=== PATIENT | female | born 1965 | race Caucasian/White ===

== ENCOUNTER 2025-08-13 11:04 | Outpatient (AMB) | payer MEDICARE, MEDICAID, SELFPAY ==
--- NOTE | 2025-08-13 11:09 | A.OFFVIS_ITS ---
Intake Visit Reasons: 4 Month follow up Allergies No Known Allergies Allergy (Verified 08/13/25 11:12) Medication List - Last Reconciled 08/13/25 by Lulú Chavez CNP cariprazine (Vraylar) 1.5 mg PO DAILY fluoxetine 40 mg PO DAILY methadone 10 mg PO TID 30 days paroxetine HCl 40 mg PO DAILY pramipexole 0.5 mg PO DAILY HPI Comments Details: She has been working with psychiatrist, started on Vraylar a few days ago. She reports continuous pain throughout her body, feels pain may be getting worse and every cell is throbbing. Referral to pain management was placed at last appointment, but she did not hear back with appointment. The only medication that helps is methadone, but she does not feel 30mg/day is sufficient anymore and she has been told multiple times that dose would not be increased. She was doing and teaching yoga, which gave some temporary relief but was sore after. RLS symptoms controlled with pramipexole. She had to take handfuls of Tylenol and ibuprofen and wanted to know what could be done about pain. She tried meloxicam, but medication made her feel bloated. She did not want medication that could cause weight gain. She tried turmeric, curcumin, fish oil, pain patches, and was drinking alkaline water. She was doing and teaching yoga. Diclofenac helped, but made her feel bloated and stopped it. Ketorolac helped in the past, but was not able to get from pharmacy. Constant, generalized pain all over, everywhere in body, even in bone marrow. Feels she has gotten used to methadone 30mg/day. She has a history of depression, anxiety, fibromyalgia, alcohol abuse in the past who has not used since 1999. Still depressed. She has previously been treated with Effexor which caused suicidal tendencies, Savella, Cymbalta, Lyrica, tramadol, gabapentin, and other medications. Pain increases with cold weather. She is currently on methadone 10 mg three times a day, which has been working for her, but she is interested in increasing the dose, but Dr. Blue has declined to do that. She has a narcotic contract with this office that if she gets narcotics from any other physician. We will stop the methadone and stop treating her in this office. She's been functioning reasonably well and pain is moderately controlled. Last seizure was >15 years ago. Partial sz with secondary generalization. Review of Systems Const Denies chills, Denies daytime sleepiness, Denies difficulty sleeping, Denies fatigue, Denies fever(s), Denies frequent falls, Denies headache(s), Denies increased appetite, Denies poor appetite, Denies snoring, Denies weakness, Denies weight gain and Denies weight loss Eyes Denies loss of vision ENT Denies vertigo, Denies dizziness, Denies headache(s) and Reports neck pain Card Denies chest pain at rest, Denies chest pain with activity, Denies syncope, Denies leg edema, Denies palpitations, Denies dyspnea and Denies dyspnea on exertion Resp Denies cough, Denies dyspnea, Denies dyspnea on exertion and Denies snoring GI Denies abdominal pain, Denies constipation, Denies heartburn, Denies diarrhea and Denies nausea Denies urinary frequency, Denies urinary incontinence and Denies urinary urgency Musc Denies abnormal gait, Reports back pain, Reports myalgias, Reports arthralgias, Reports neck pain, Denies numbness and Denies tingling Neuro Denies abnormal gait, Denies vertigo, Denies dizziness, Denies syncope, Denies frequent falls, Denies headache(s), Denies lack of coordination, Denies loss of vision, Denies memory loss, Denies numbness, Denies Other visual disturbances, Denies restless legs, Denies seizure-like activity, Denies tingling, Denies paresthesias, Denies tremor(s) and Denies weakness Psych Reports anxiety, Reports depression, Denies auditory hallucinations, Denies memory loss and Denies visual hallucinations Endo Denies fatigue and Denies palpitations Physical Exam Const Other: General Appearance:? normal, in no acute distress. Heart:? S1, S2 normal, no murmurs. Lungs:? clear anteriorly and posteriorly. Musculoskeletal:? normal. Extremities:? no edema. Psych:? alert, oriented, cognitive function intact, cooperative with exam. Neuro Other: Abnormal Neurological Findings:?none.? Mental Status: alert and oriented X 3. Normal attention, orientation, memory, and affect. Cranial Nerves: Pupils are equal, round, and reactive to light. External ocular muscles are intact. Visual brown are full, no ptosis. Face is symmetrical, no facial weakness or droop. Facial sensations are normal. Tongue protrudes in midline. Palate elevates symmetrically. Shoulder shrugging is normal Motor Examination: Normal muscle tone, bulk and strength. No atrophy or fasciculations. No drift of the extended upper extremities. DTR 2+. Plantars are flexor. Sensory Exam: Normal light touch, temperature, pinprick, vibration, and joint- position sensations. Rhomberg sign is absent. Coordination: No ataxia. No titubation. Gait Exam: Within normal limits. Cerebellar Signs: Pjzyzn-[id number]-ozin is okay. Extrapyramidal System: No tremor, rigidity with normal facial expressions. No bradykinesia. No bradyphrenia. Normal arm swing and posture. No propulsion or retropulsion. Speech: Normal. Assessment & Plan Assessment & Plan (1) Restless leg syndrome: Code(s): G25.81 - Restless legs syndrome Category: Medical Plan: Continue pramipexole 0.5mg 1 tablet in the evening. (2) Chronic pain: Code(s): G89.29 - Other chronic pain Category: Medical Qualifiers: Chronic pain type: other chronic pain Qualified Code(s): G89.29 - Other chronic pain Plan: Continue methadone 10mg 1 tablet three times a day. She was referred to pain management at her last visit, but says she was not contacted to schedule appointment. Referral to pain management placed. (3) Fibromyalgia: Code(s): M79.7 - Fibromyalgia Category: Medical (4) Depression: Code(s): F32.A - Depression, unspecified Category: Medical Qualifiers: Depression Type: other depression Qualified Code(s): F32.89 - Other specified depressive episodes Plan: Following with psychiatrist. Plan . Orders: Referrals Pain Management Referral G89.29 - Other chronic pain Coding Level of Care Code Est Pt Level 4 (67441) Diagnoses Restless leg syndrome G25.81 Other chronic pain G89.29 Chronic pain type: other chronic pain Fibromyalgia M79.7 Other depression F32.89 Depression Type: other depression
--- OUTSIDE RECORDS SUMMARY | 2025-08-13 12:21 | XMS_ITS | Clinical Summary ---
Author Organization [facility] it Address [address] [place] [address] Care Team Providers Care Ring Stamper Name Role Phone Lety Piña MD Primary Care Provider [phone] Allergies No known active allergies Medications penicillin v potassium (VEETID) 500 mg tablet Take 500 mg by mouth 4 times daily. Active ibuprofen (ADVIL,MOTRIN) 600 mg tablet Take 600 mg by mouth every 8 hours as needed. Moderate to severe pain Active FLUoxetine (PROzac) 20 mg capsule Take 20 mg by mouth daily. Active LORazepam (ATIVAN) 1 mg tablet Take 1 mg by mouth 2 times daily as needed for Agitation or Anxiety. Active methadone HCl (METHADONE ORAL) Take 10 mg by mouth 3 times daily. Active PARoxetine (PAXIL) 40 mg tablet Take 40 mg by mouth daily. Active pramipexole (MIRAPEX) 0.5 mg tablet Take 0.5 mg by mouth 2 times daily. Active ziprasidone (GEODON) 40 mg capsule Take 40 mg by mouth daily. 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 Jiménez (biopsy performed 10/18 revealed LSC and yet distribution and number of lesions concurs with Dr. Jiménez dx) Depression 05/15/2006 Substance abuse ([facility] V24, [facility] V28) 05/15 Overview (08/19/2024): Smokes cocaine, Denies IVDU, H/o alcohol abuse reportedly quit 1999 Immunizations Immunization Administration Dates Next Due Influenza trivalent, 0.5mL, preservative free (Fluarix; FluLaval; Fluzone) ages 6mo and older (Afluria) 3 years and older 09/02/2014 Td Tetanus diptheria (Tdvax) 7yo and older 11/16 Surgical History Surgery Date Site/Laterality Comments TONSILLECTOMY PROCEDURE: HISTORICAL TONSILLECTOMY; COMMENT: age 8 OTHER SURGICAL HISTORY PROCEDURE: IN [place] MISSED FIRST TRIMESTER SURGICAL Medical History Medical History Date Comments Anxiety 05/07/2016 DX:Anxiety Osteoarthritis 12/17/2018 DX:Osteoarthriti s; COMMENT: Cervical Spine Spinal stenosis, cervical region 12/17/2018 DX:Spinal stenosis, cervical region Pulmonary emphysema ([facility] V24, 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 Jiménez (biopsy performed 10/18 revealed LSC and yet distribution and number of lesions concurs with Dr. Jiménez dx) Osteoporosis 06/13/2016 DX:Osteoporosis Restless legs syndrome 05/07/2016 DX:Restle ss legs syndrome Tubular adenoma of colon 10/31/2016 DX:Tubu lar adenoma of colon Depression 05/15/2006 DX:Depression Substance abuse ([facility] V24 , [facility] V28) 05/15/2006 DX:Substance abuse ([facility]); CO MMENT: Smokes cocaine, Denies IVDU, H/o alcohol abuse reportedly quit 1999 Mitral valve regurgitation 12/17/2018 DX:Mi tral valve regurgitation; COMMENT: 11/2018 Echo, Mild Family History Medical History Relation Name Comments Depression Maternal Grandmother Depression Mother Relation Name Status Comments Father Alive Maternal Grandfather Maternal Grandmother Mother Alive Paternal Grandfather Paternal Grandmother Social History Tobacco Use Types Packs/Day Years Used Date Smoking Tobacco: Passive Smo ke Exposure - Never Smoker Cigarettes Smokeless Tobacco: Former Alcohol Use Standard Drinks/Week Comments No 0 (1 standard drink = 0.6 oz pur e alcohol) Comments Unknown Sex and Gender Information Value Date Recorded Sex Assigned at Not on file Legal Sex Female 9:05 PM EST Gender Identity Not on file Sexual Orientation Not on file Obstetrics History Plan of Treatment Health Maintenance Due Date Last Done Comments Breast Cancer Screening 1963 Colorectal Cancer Screening: Colonoscopy 1965 Hepatitis A Vaccines (1 of 2 - Risk 2-dose series) 1982 Pneumococcal Vaccine: 50+ Ye ars (1 of 2 - PCV) 1982 Cervical Cancer Screening: P ap Smear 01/08/2011 01/08/2008 Zoster Vaccines (1 of 2) 2013 DTaP,Tdap,and Td Vaccines (2 - Td or Tdap) 11/16/2014 11/16/2004 RSV Immunization Adult Patie nts (1 - Risk 60-74 years 1-dose series) 2023 Osteoporosis Screening (Bone Density Screening) 08/19/2024 Social Influencers of Health Screening 08/19/2024 Depression Screening 11/11/2024 COVID-19 Vaccine ( - 2023-2 5 season) 2025 Influenza Vaccine (#1) 2025 09/02/2014 HIV Screening Completed 01/08/2008 Hepatitis C Screening Completed 01/08/2008 HIB Vaccines Aged Out No longer eligi ble based on patient's age to complete this topic HPV Vaccines Aged Out No longer eligi ble based on patient's age to complete this topic Hepatitis B Vaccines Aged Out No long er eligible based on patient's age to complete this topic IPV Vaccines Aged Out No longer eligi ble based on patient's age to complete this topic MMR Vaccines Aged Out No longer eligi ble based on patient's age to complete this topic Meningococcal ACWY Vaccine Aged Out N o longer eligible based on patient's age to complete this topic Meningococcal B Vaccine Aged Out No l onger eligible based on patient's age to complete this topic RSV Immunization Patients Un [place] 20 months Aged Out No longer eligible b ased on patient's age to complete this topic Varicella Vaccines Aged Out No longer eligible based on patient's age to complete this topic Procedures Procedure Name Priority Date/Time Associated Diagnosis Comments HEPATITIS C SCREENING Routine 01/08/2008 HIV SCREENING Routine 01/08/2008 PAP SMEAR Routine 01/08/2008 from Last 3 Months or Most Recently Relevant to Health Maintenance Results * HIV Screening (01/08/2008) Pathologist [facility] HIV Screening abstarcted [facility] Provider HEALTH MAINTENANCE Final Result * Hepatitis C Screening (01/08/2008) Pathologist [facility] Hepatitis C Screening abstarcted [facility] Provider HEALTH MAINTENANCE Final Result * Pap Smear (01/08/2008) Pathologist [facility] Pap smear abstracted, no interpretation [facility] Provider HEALTH MAINTENANCE Final Result from Last 3 Months or Most Recently Relevant to Health Maintenance Care Teams Ring Stamper Relationship Specialty Start Date End Date Lety Piña MD [address] [place] [id number] PCP - General Internal Medicine 12/25/18
== END 2025-08-13 11:26 | disposition home or self-care (01) ==
LOC: HO.HSM 11:05
PROVIDERS: PCP Internal Medicine; Visit Provider Registered Nurse
DX: G25.81 Restless legs syndrome (principal); G89.29 Other chronic pain; M79.7 Fibromyalgia; F32.89 Other specified depressive episodes
CPT/HCPCS: 99214

== ENCOUNTER → 2025-08-13 11:04 | Outpatient (BNVA) | payer MEDICARE, OTHER, SELFPAY | PROVIDERS: PCP Internal Medicine; Visit Provider Registered Nurse | DX: G25.81 Restless legs syndrome (principal); F32.89 Other specified depressive episodes; M79.7 Fibromyalgia; G89.29 Other chronic pain | CPT/HCPCS: 99212 ==

== ENCOUNTER 2025-09-13 12:59 | Outpatient (AMB) | payer MEDICARE, MEDICAID, SELFPAY ==
--- NOTE | 2025-09-13 13:01 | MHC.OFFVIS ---
Vital Signs 09/13/25 13:09 Height 5 ft 6 in Weight 110 lb BMI 17.8 BP 140/82 H Blood Pressure Location Rt brachial Position Sitting Pulse 96 Pulse Source Pulse Oximeter Pulse Oximetry (%) 104 H Oxygen Delivery Method Room Air Intake Visit Reasons: Other chronic pain Intake Note: Pain today 05/20 Toll Line Mechanic Required: No Accompanied by: Self / Same As Patient Allergies No Known Allergies Allergy (Verified 09/13/25 13:13) HPI Comments Details: The patient is a 60-year-old female presenting with chronic pain affecting the neck, shoulders, back, and hips. The pain has been present for many years and is described as constant, pulsing, throbbing, and pounding, with a severity ranging from 6/10 to 8/10. It affects her daily activities, including self-care, functioning, and sleep, and is more severe in the morning and evening. The patient reports that movements such as walking, bending, twisting, and lifting, as well as cold weather, exacerbate her pain. She has been on methadone 10 mg three times a day for pain management for the past 10 years. She has tried various interventions, including physical therapy, chiropractic manipulation, and massage therapy, without relief. The patient has a history of fibromyalgia, neuropathy, scoliosis and chronic depression, which have contributed to her chronic pain. She also has a history of seizures, which occurred 20 years ago and are possibly related to past alcohol use. She stopped consuming alcohol in 1999 and has been in recovery since then. The patient has scoliosis, which has been present since childhood, affecting her thoracic and lumbar spine. She reports that the scoliosis causes a constant pulling sensation, contributing to her pain. She has not had any spine surgeries or injections for her back pain. - Onset and Timing: Chronic pain present for many years, more severe in the morning and evening - Quality and Character: Described as pulsing, throbbing, pounding, sore, hurting, aching, burning, pulling and heavy - Primary Location: Neck, shoulders, back, and hips - Radiation: Radiates to lower extremities - Exacerbating Factors: Movements such as walking, bending, twisting, lifting, and cold weather - Relieving Factors: Methadone and Yoga provides some relief - Interference: Affects daily activities, self-care, functioning, and sleep - Affect: Pain impacts mood and psychological wellbeing, contributing to chronic depression - Analgesia: Currently on methadone 10 mg three times a day, interested in increasing the dose - Adverse Effects: No specific adverse effects from methadone reported - Activities of Daily Living: Pain affects daily activities, self-care, functioning, and sleep - Aberrant Drug Related Behaviors: No aberrant behaviors reported, patient adheres to methadone regimen [facility] Medical History (Updated 09/13/25 @ 22:44 by RC Hurd) Scoliosis of thoracolumbar spine Seizures Ovarian cyst Chronic headaches Chronic pain Restless leg syndrome Fibromyalgia Depression Methadone maintenance therapy patient History of alcohol abuse Surgical History (Updated 09/13/25 @ 13:16 by RC Hurd) History of shoulder surgery (~1984) Social History (Updated 09/13/25 @ 13:19 by Day Bullock) Alcohol intake: former Year quit: 1999 Patient Tobacco Use Status: Former Tobacco user Review of Systems Const Details: - Musculoskeletal: Reports chronic pain in neck, shoulders, back, and hips; denies numbness or tingling in lower extremities - Neurological: Reports history of seizures, last occurred 20 years ago; denies current seizure activity - Psychological: Reports chronic depression All systems reviewed & are unremarkable except as noted in HPI and below Physical Exam Vital Signs: Last Vital Signs Pulse 96 09/13/25 13:09 BP 140/82 H 09/13/25 13:09 Pulse Ox 104 H 09/13/25 13:09 Oxygen Delivery Method Room Air 09/13/25 13:09 BMI result Body Mass Index 17.8 General: Appears afebrile. Alert and oriented. Mood and affect appropriate. Follows and participates in conversation appropriately. Respiratory effort is unlabored. No cough. Able to transition from sit to stand unassisted. Ambulates with bilaterally normal heel strike and toe off. General: Yes no CVA tenderness Back/Spine/Pelvis Other: Patient is able to walk and stand on heels and tip toes with no difficulties demonstrating good motor tone. Normal gait, no limping. Lumbar flexion and bending reproduces mild to moderate pain, lumbar extension reproduces moderate to severe pain. Demonstrates 5/5 strength of quadriceps bilaterally as well as flexion/dorsiflexion of bilateral feet against resistance. 2+ pedal pulses bilaterally. Straight leg rise with dorsiflexion negative bilaterally. +2 patellar and +1 achilles reflexes bilaterally. Facet loading test positive bilaterally. Fazal sign, Duncan?s, Pelvic compression and Stinchfield tests are negative bilaterally. No groin pain with I/E hip rotations. Valsalva maneuver negative. Back: no CVA tenderness Cervical Spine: cervical ROM normal, cervical muscular tenderness, pain with cervical ROM and No Cervical spine tenderness Thoracic/Lumbar Spine: thoracic and lumbar spine normal to inspection, Lasegue's sign negative, straight leg raise negative bilaterally, pain with thoraco-lumbar ROM, paraspinal muscle tenderness on the right greater than left, thoraco-lumbar ROM limited, Thoracic/lumbar scoliosis, No thoracic spinal tenderness and No lumbar spinal tenderness Sacroiliac joints: bilaterally nontender and tender to palpation Extrem General: Yes capillary refill normal, Yes no clubbing, cyanosis or edema and Yes no calf tenderness Results Reviewed Results Reviewed: XR lumbar spine 4V min 09/13/25 FINDINGS: There are 5 nonrib-bearing lumbar segments. There is 27 degrees dextroscoliosis. There is moderate rotational component. There is mild wedging of superior L1 and mild osteophyte at superior L2. T12-L1: There is moderate disc space narrowing and endplate sclerosis L1-L2: There is moderate disc space narrowing with endplate sclerosis and anterior osteophytes L2-L3: There is mild grade 1 retrolisthesis and moderate loss of disc height with minimal endplate osteophytes. L3-L4: There is mild disc space narrowing. L4-L5: Unremarkable L5-S1: Unremarkable IMPRESSION: Moderate dextroscoliosis. Moderate degenerative disc disease at T12-L1 and L1-2 and mild degenerative changes at L2-3 and L3-4. Mild loss of height at L1 and L2 is probably related to scoliosis and degenerative changes but mild age-indeterminate compression fractures are not ruled out. XR CERVICAL SPINE 09/13/25 FINDINGS: There is mild reversal of the normal cervical lordosis. No fractures are identified. Limbus vertebra is noted at anterior inferior C5 and C6. There is no prevertebral soft tissue swelling. C2-3: Unremarkable C3-4: There is mild disc space narrowing and endplate osteophytes C4-5: There is moderate disc space narrowing with large anterior osteophytes and sclerosis. There is mild bony narrowing of the bilateral neural foramen C5-6: There is mild disc space narrowing with anterior osteophytes and endplate sclerosis. Uncovertebral osteophytes mildly narrow the right neural foramen C6-7: There is mild to moderate disc space narrowing and endplate sclerosis. C7-T1: Unremarkable. IMPRESSION: There is mild reversal of cervical lordosis. This can be related to degenerative changes, positioning, muscle spasm, or posterior soft tissue injury. Degenerative changes are most advanced at C4-5 and C5-6. Assessment & Plan Assessment & Plan (1) Fibromyalgia: Code(s): M79.7 - Fibromyalgia Category: Medical (2) Chronic pain: Code(s): G89.29 - Other chronic pain Category: Medical Qualifiers: Chronic pain type: other chronic pain Qualified Code(s): G89.29 - Other chronic pain (3) Methadone maintenance therapy patient: Code(s): F11.20 - Opioid dependence, uncomplicated Category: Medical (4) Chronic low back pain: Code(s): M54.50 - Low back pain, unspecified; G89.29 - Other chronic pain Category: Medical (5) Cervical spondylosis: Code(s): M47.812 - Spondylosis without myelopathy or radiculopathy, cervical region Category: Medical (6) Chronic low back pain: Code(s): M54.50 - Low back pain, unspecified; G89.29 - Other chronic pain Category: Medical (7) Scoliosis of thoracolumbar spine: Code(s): M41.9 - Scoliosis, unspecified Category: Medical (8) Lumbar spondylosis: Code(s): M47.816 - Spondylosis without myelopathy or radiculopathy, lumbar region Category: Medical Plan The plan for managing the patient's chronic pain includes obtaining neck and back x-rays to assess for arthritis and degree of scoliosis and consider diagnostic lumbar medial branch blocks for potential Sprint PNS trial vs RFA procedures for a longer term pain management. These imaging studies were completed after today's visit. Schedule diagnostic bilateral L1-L2-L3 medial branch blocks with local and fluoroscopy. Expectations, risks and benefits were reviewed. Patient is aware she will be contacted to schedule this procedure. v The patient will continue methadone therapy through her Neurology provider, she is aware our office does not offer opioid prescribing. Further interventions such as physical therapy or career coordinator are not planned at this time due to previous lack of efficacy. All questions and concerns have been answered and patient agreed with the treatment plan. Follow up after injections and sooner as needed. Patient was informed and verbally consented to the use of an ambient scribe for clinic note documentation during this visit. Orders: Orders XR lumbar spine 4V min Today G89.29 - Other chronic pain, M41.9 - Scoliosis, unspecified, M54.50 - Low back pain, unspecified XR cervical spine 4V Today M47.812 - Spondylosis without myelopathy or radiculopathy, cervical region Coding Level of Care Code New Pt Level 4 (37760) Diagnoses Fibromyalgia M79.7 Other chronic pain G89.29 Chronic pain type: other chronic pain Methadone maintenance therapy patient F11.20 Chronic low back pain M54.50; G89.29 Cervical spondylosis M47.812 Scoliosis of thoracolumbar spine M41.9 Lumbar spondylosis M47.816
[2025-09-13 13:09] VITALS: BP 140/82; PULSE 96; O2SAT 104; BMI 17.8
== END 2025-09-13 13:36 | disposition home or self-care (01) ==
LOC: HO.PMC 13:00
PROVIDERS: PCP Internal Medicine; Visit Provider Nurse Practitioner Family
DX: M79.7 Fibromyalgia (principal); G89.29 Other chronic pain; Z79.891 Long term (current) use of opiate analgesic; M54.50 Low back pain, unspecified; M47.812 Spondylosis without myelopathy or radiculopathy, cervical region; M41.9 Scoliosis, unspecified; M47.816 Spondylosis without myelopathy or radiculopathy, lumbar region
CPT/HCPCS: 99204

== ENCOUNTER 2025-09-13 12:59 | Outpatient (REF) | payer MEDICARE, SELFPAY ==
--- NOTE | ~2025-09-13 | XR_ITS ---
EXAMINATION: XR CERVICAL SPINE CLINICAL INFORMATION: M47.812 - Spondylosis without myelopathy or radiculopathy, cervical region COMPARISON: None available. TECHNIQUE: 5 views of the cervical spine were obtained. FINDINGS: There is mild reversal of the normal cervical lordosis. No fractures are identified. Limbus vertebra is noted at anterior inferior C5 and C6. There is no prevertebral soft tissue swelling. C2-3: Unremarkable C3-4: There is mild disc space narrowing and endplate osteophytes C4-5: There is moderate disc space narrowing with large anterior osteophytes and sclerosis. There is mild bony narrowing of the bilateral neural foramen C5-6: There is mild disc space narrowing with anterior osteophytes and endplate sclerosis. Uncovertebral osteophytes mildly narrow the right neural foramen C6-7: There is mild to moderate disc space narrowing and endplate sclerosis. C7-T1: Unremarkable. XR/XR cervical spine 4V IMPRESSION: There is mild reversal of cervical lordosis. This can be related to degenerative changes, positioning, muscle spasm, or posterior soft tissue injury. Degenerative changes are most advanced at C4-5 and C5-6. Electronically signed by: Elton Webb MD 09/13/2025 02:24 PM EST
--- NOTE | ~2025-09-13 | XR_ITS ---
Examination: CR Xr Lumbar Spine 4v Min TECHNIQUE: AP, lateral, lateral spot, bilateral oblique x-rays lumbar spine INDICATION: M54.50 - Low back pain, unspecified Prior: None FINDINGS: There are 5 nonrib-bearing lumbar segments. There is 27 degrees dextroscoliosis. There is moderate rotational component. There is mild wedging of superior L1 and mild osteophyte at superior L2. T12-L1: There is moderate disc space narrowing and endplate sclerosis L1-L2: There is moderate disc space narrowing with endplate sclerosis and anterior osteophytes L2-L3: There is mild grade 1 retrolisthesis and moderate loss of disc height with minimal endplate osteophytes. L3-L4: There is mild disc space narrowing. L4-L5: Unremarkable L5-S1: Unremarkable XR/XR lumbar spine 4V min IMPRESSION: Moderate dextroscoliosis. Moderate degenerative disc disease at T12-L1 and L1-2 and mild degenerative changes at L2-3 and L3-4. Mild loss of height at L1 and L2 is probably related to scoliosis and degenerative changes but mild age-indeterminate compression fractures are not ruled out. Electronically signed by: Elton Webb MD 09/13/2025 02:21 PM DEJA
== END 2025-09-13 13:00 | disposition home or self-care (01) ==
LOC: HO.XRAY 12:59
PROVIDERS: Visit Provider Nurse Practitioner Family
DX: M47.812 Spondylosis without myelopathy or radiculopathy, cervical region (principal); M47.816 Spondylosis without myelopathy or radiculopathy, lumbar region; M41.9 Scoliosis, unspecified; M79.7 Fibromyalgia; G89.29 Other chronic pain; F11.20 Opioid dependence, uncomplicated
CPT/HCPCS: 72050; 72110; 99202

== ENCOUNTER → 2025-09-13 13:49 | Outpatient (BNV) | payer MEDICARE, MEDICAID, SELFPAY | PROVIDERS: Visit Provider Radiology Diagnostic Radiology | DX: M47.812 Spondylosis without myelopathy or radiculopathy, cervical region (principal); M51.34 Other intervertebral disc degeneration, thoracic region; M51.360 Other intervertebral disc degeneration, lumbar region with discogenic back pain only; M41.86 Other forms of scoliosis, lumbar region; M51.35 Other intervertebral disc degeneration, thoracolumbar region; M50.321 Other cervical disc degeneration at C4-C5 level; M50.322 Other cervical disc degeneration at C5-C6 level; M40.55 Lordosis, unspecified, thoracolumbar region | CPT/HCPCS: 72050; 72110 ==

== ENCOUNTER 2025-11-02 06:24 | Outpatient (REF) | payer MEDICARE, MEDICAID, SELFPAY ==
--- NOTE | ~2025-11-02 | FL_ITS ---
EXAMINATION: FL GUIDANCE ONLY HISTORY: M47.816 - Spondylosis without myelopathy or radiculopathy, lumbar region COMPARISON: None available. TECHNIQUE: Fluoroscopy time: 39 seconds. Cumulative Dose: 6.90 mGy. DAP: 1480.20 mGycm2 Images: 4. FINDINGS: Fluoroscopic spot films of the thoracolumbar junction demonstrate needles and contrast material lateral to the bilateral T12, L1, and L2 pedicles. FL/FL guidance in treatment room IMPRESSION: Fluoroscopy during procedure. Please see procedure report for additional information. Electronically signed by: Kishan Lomeli MD 11/02/2025 03:24 PM DEJA
--- OUTSIDE RECORDS SUMMARY | 2025-11-02 06:26 | XMS_ITS | Clinical Summary ---
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 Jiménez (biopsy performed 10/18 revealed LSC and yet distribution and number of lesions concurs with Dr. Jiménez dx) Depression 05/15/2006 Substance abuse 05/15/2006 Overview (08/19/2024): Smokes cocaine, Denies IVDU, H/o alcohol abuse reportedly quit 1999 Immunizations Immunization Administration Dates Next Due Influenza trivalent, 0.5mL, preservative free (Fluarix; FluLaval; Fluzone) ages 6mo and older (Afluria) 3 years and older 09/02/2014 Td Tetanus diptheria (Tdvax) 7yo and older 11/16 Surgical History Surgery Date Site/Laterality Comments TONSILLECTOMY PROCEDURE: HISTORICAL TONSILLECTOMY; COMMENT: age 8 OTHER SURGICAL HISTORY PROCEDURE: [place] MISSED FIRST TRIMESTER SURGICAL Medical History Medical History Date Comments Anxiety 05/07/2016 DX:Anxiety Osteoarthritis 12/17/2018 DX:Osteoarthriti s; COMMENT: Cervical Spine Spinal stenosis, cervical region 12/17/2018 DX:Spinal stenosis, cervical region Pulmonary emphysema (CMS/HCC V24, CMS/HCC V28) 12/17/2018 DX:Pulmonary emphysema (HCC) Cellulitis 12/17/2018 [...] of colon Depression 05/15/2006 DX:Depression Substance abuse (CMS/HCC V24 , CMS/HCC V28) 05/15/2006 DX:Substance abuse (HCC); CO MMENT: Smokes cocaine, Denies IVDU, H/o [...] on file Sexual Orientation Not on file Plan of Treatment Health Maintenance Due Date Last Done Comments Breast Cancer Screening 1963 Colorectal Cancer Screening: Colonoscopy 1965 Drug Screen 1963 Non-Opioid Controlled Substa nce Agreement 1963 Hepatitis A Vaccines (1 of 2 - Risk 2-dose series) 1982 Pneumococcal Vaccine: 50+ Ye ars (1 of 2 - PCV) 1982 Cervical Cancer Screening: P ap Smear 01/08/2011 01/08/2008 RSV Immunization Adult Patie nts (1 - Risk 50-74 years 1-dose series) 2013 Zoster Vaccines (1 of 2) 2013 DTaP,Tdap,and Td Vaccines (2 - Td or Tdap) 11/16/2014 11/16/2004 Osteoporosis Screening (Bone Density Screening) 08/19/2024 Social Influencers of Health Screening 08/19/2024 Depression Screening 11/11/2024 COVID-19 Vaccine (1 - 2024-2 6 season) 2025 Influenza Vaccine (#1) 2025 09/02/2014 [...] Maintenance Results * HIV Screening (01/08/2008) Pathologist [facility] HIV Screening abstarcted [facility] Provider HEALTH MAINTENANCE Final Result * Hepatitis C Screening (01/08/2008) Pathologist Replaced by [facility] Hepatitis C Screening abstarcted [facility] Provider HEALTH MAINTENANCE Final Result * Pap Smear (01/08/2008) Pap smear abstracted, no interpretation [facility] Provider HEALTH MAINTENANCE Final Result from Last 3 Months or Most Recently Relevant to Health Maintenance Care Teams Tiedown Operator Relationship Specialty Start Date End Date Lety Piña MD [address] [place] [address] PCP - General Internal Medicine 12/25/18
== END 2025-11-02 06:25 | disposition home or self-care (01) ==
LOC: CF 06:24
PROVIDERS: Visit Provider Anesthesiology
DX: M47.816 Spondylosis without myelopathy or radiculopathy, lumbar region (principal); M79.7 Fibromyalgia; G89.29 Other chronic pain; F11.20 Opioid dependence, uncomplicated; M47.812 Spondylosis without myelopathy or radiculopathy, cervical region; M41.9 Scoliosis, unspecified
CPT/HCPCS: 64493; 64494; J2003; J2795; Q9967

== ENCOUNTER 2025-11-02 12:58 | Outpatient (AMB) | payer MEDICARE, MEDICAID, SELFPAY ==
--- NOTE | 2025-11-02 12:59 | MHC.OFFVIS ---
Vital Signs 11/02/25 13:00 11/02/25 13:38 Height 5 ft 6 in Weight 110 lb BMI 17.8 BP 103/58 L 115/56 L Blood Pressure Location Lt brachial Lt brachial Position Sitting Sitting Respiration 16 16 Pulse 66 65 Pulse Source Pulse Oximeter Pulse Oximeter Pulse Oximetry (%) 98 98 Oxygen Delivery Method Room Air Room Air Intake Visit Reasons: Bilateral Diagnostic L1-L2-L3 MBB Allergies No Known Allergies Allergy (Verified 09/13/25 13:13) PFSH Medical History (Updated 10/26/25 @ 15:43 by RC Hurd) Scoliosis of thoracolumbar spine Seizures Ovarian cyst Chronic headaches Chronic pain Restless leg syndrome Fibromyalgia Depression Methadone maintenance therapy patient History of alcohol abuse Surgical History (Updated 09/13/25 @ 13:16 by RC Hurd) History of shoulder surgery (~1984) Social History (Updated 09/13/25 @ 13:19 by Day Bullock) Alcohol intake: former Year quit: 1999 Patient Tobacco Use Status: Former Tobacco user Physical Exam Vital Signs: Last Vital Signs Pulse 65 11/02/25 13:38 Resp 16 11/02/25 13:38 BP 115/56 L 11/02/25 13:38 Pulse Ox 98 11/02/25 13:38 Oxygen Delivery Method Room Air 11/02/25 13:38 BMI result Body Mass Index 17.8 Assessment & Plan Assessment & Plan (1) Fibromyalgia: Code(s): M79.7 - Fibromyalgia Category: Medical (2) Chronic pain: Code(s): G89.29 - Other chronic pain Category: Medical Qualifiers: Chronic pain type: other chronic pain Qualified Code(s): G89.29 - Other chronic pain (3) Methadone maintenance therapy patient: Code(s): F11.20 - Opioid dependence, uncomplicated Category: Medical (4) Chronic low back pain: Code(s): M54.50 - Low back pain, unspecified; G89.29 - Other chronic pain Category: Medical (5) Cervical spondylosis: Code(s): M47.812 - Spondylosis without myelopathy or radiculopathy, cervical region Category: Medical (6) Chronic low back pain: Code(s): M54.50 - Low back pain, unspecified; G89.29 - Other chronic pain Category: Medical Plan: Diagnostic medial branch block L1-L2 L3 bilateral.? ? ?Informed consent was explained to the patient. All questions were explained and? answered.? The patient was taken inside the operating room where she was positioned prone on the operating table. Time-out was performed delineating correct site, side, the nature of the procedure, patient's allergy, . All operating room staff was participating in OR time-out procedure. ? ? The lower back was prepped with ChloraPrep and draped with sterile utility towels.? C-arm was brought over the operating field and sq picture of T12 on 1 in the L2 vertebra were delineated on the screen.? Point of interest were delineated as confluence of superior articular process of L4 and L5 vertebra bilaterally with corresponding transverse processes as well as confluence of the sacral alae bilaterally with superior articular process of S1.? The projection of the point of interest to the skin were injected with the small amount of local anesthetic lidocaine 2% mixed with ropivacaine 0.5% 1-1 approximately 1 cc.? After that 22 gauge 3.5 inch spinal needles were driven sequentially to the points of interest in tunnel vision fashion. After needles gently contacted the bone at the point of interests the needle was injected with small amount of the contrast.? The injection of the contrast did not demonstrate any intravascular or intrathecal spread of the contrast.? After that injection of the? ropivacaine 0.5%-1cc was performed at each needle location.?After that the needles were removed and Bandaids were applied (7) Scoliosis of thoracolumbar spine: Code(s): M41.9 - Scoliosis, unspecified Category: Medical (8) Lumbar spondylosis: Code(s): M47.816 - Spondylosis without myelopathy or radiculopathy, lumbar region Category: Medical Plan Diagnostic medial branch block L1-L2 L3 bilateral.? ? ?Informed consent was explained to the patient. All questions were explained and? answered.? The patient was taken inside the operating room where she was positioned prone on the operating table. Time-out was performed delineating correct site, side, the nature of the procedure, patient's allergy, . All operating room staff was participating in OR time-out procedure. ? ? The lower back was prepped with ChloraPrep and draped with sterile utility towels.? C-arm was brought over the operating field and sq picture of T12 on 1 in the L2 vertebra were delineated on the screen.? Point of interest were delineated as confluence of superior articular process of L4 and L5 vertebra bilaterally with corresponding transverse processes as well as confluence of the sacral alae bilaterally with superior articular process of S1.? The projection of the point of interest to the skin were injected with the small amount of local anesthetic lidocaine 2% mixed with ropivacaine 0.5% 1-1 approximately 1 cc.? After that 22 gauge 3.5 inch spinal needles were driven sequentially to the points of interest in tunnel vision fashion. After needles gently contacted the bone at the point of interests the needle was injected with small amount of the contrast.? The injection of the contrast did not demonstrate any intravascular or intrathecal spread of the contrast.? After that injection of the? ropivacaine 0.5%-1cc was performed at each needle location.?After that the needles were removed and Bandaids were applied Orders: Orders FL guidance in treatment room Today M47.816 - Spondylosis without myelopathy or radiculopathy, lumbar region Coding Level of Care Code Procedure Only Diagnoses Fibromyalgia M79.7 Other chronic pain G89.29 Chronic pain type: other chronic pain Methadone maintenance therapy patient F11.20 Chronic low back pain M54.50; G89.29 Cervical spondylosis M47.812 Scoliosis of thoracolumbar spine M41.9 Lumbar spondylosis M47.816
[2025-11-02 13:00] VITALS: BP 103/58; PULSE 66; RESP 16; O2SAT 98; BMI 17.8
[2025-11-02 13:38] VITALS: BP 115/56; PULSE 65; RESP 16; O2SAT 98
== END 2025-11-02 13:37 | disposition home or self-care (01) ==
LOC: HO.PMCPRC 12:58
PROVIDERS: Visit Provider Anesthesiology
DX: M79.7 Fibromyalgia (principal); G89.29 Other chronic pain; F11.20 Opioid dependence, uncomplicated; M54.50 Low back pain, unspecified; M47.812 Spondylosis without myelopathy or radiculopathy, cervical region; M41.9 Scoliosis, unspecified; M47.816 Spondylosis without myelopathy or radiculopathy, lumbar region
CPT/HCPCS: 64493; 64494

== ENCOUNTER 2025-11-08 13:16 | Outpatient (AMB) | payer MEDICARE, MEDICAID, SELFPAY ==
--- NOTE | 2025-11-08 13:23 | MHC.OFFVIS ---
Vital Signs 11/08/25 13:29 Height 5 ft 6 in Weight 110 lb BMI 17.8 BP 105/58 L Blood Pressure Location Lt brachial Position Sitting Respiration 16 Pulse 77 Pulse Source Pulse Oximeter Pulse Oximetry (%) 98 Oxygen Delivery Method Room Air Intake Visit Reasons: S/p B/l Dx L1-L2-L3 MBB 11/02/25 Ladle Liner Helper Required: No Accompanied by: Self / Same As Patient Allergies No Known Allergies Allergy (Verified 11/08/25 13:28) HPI Comments Details: The patient is a 60 year old female presenting for a post-procedure follow-up visit after bilateral diagnostic L1-L2-L3 medial branch blocks for chronic back pain. She underwent the diagnostic injections on 11/02 and experienced significant pain relief, with her pain decreasing to a 1-2/10 for over 12 hours. During the period of relief, she was more functional and able to straighten her back. Her pain returned by the next day. Her chronic pain is attributed to scoliosis, degeneration, and arthritis, primarily located where her spinal curve is most prominent. The pain is worse with movement, described as a pulling sensation, and causes her difficulty with straightening up. The patient has a history of fibromyalgia and does not take narcotic medications. She is very active, teaching yoga almost every day. She has an MRI scheduled for November 26 and a Neurosurgical referral for potential surgical correction of her spinal curve. Pain Description - Location: Pain is located in the mid-back, specifically where the spinal curve is most pronounced. - Quality: Described as a pulling sensation that wracks me up and down my back. - Severity: Baseline pain is approximately 5/10 while sitting still; it decreased to 1-2/10 following diagnostic injections. - Exacerbating Factors: Pain is worse with movement. 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 Pain Management - Analgesia: The patient reports her pain decreased to 1-2/10 for over 12 hours after bilateral L1-L3 diagnostic medial branch blocks. - Activities of Daily Living: Her pain interferes with her ability to straighten up and teach yoga. - Affect: The patient states the pain breaks me and she is seeking a more permanent solution. - Aberrant Drug Related Behaviors: The patient reports she cannot take narcotics and is not seeking medications for pain. Past Procedures: 11/02/25: Bilateral diagnostic L1-L2-L3 MBB-80-90% pain relief for 12 hours [facility] Medical History Scoliosis of thoracolumbar spine Seizures Ovarian cyst Chronic headaches Chronic pain Restless leg syndrome Fibromyalgia Depression Methadone maintenance therapy patient History of alcohol abuse Surgical History History of shoulder surgery (~1984) Social History Alcohol intake: former Year quit: 1999 Patient Tobacco Use Status: Former Tobacco user Review of Systems Narrative - Musculoskeletal: Reports chronic mid-back pain that is worse with movement, causing a pulling sensation and an inability to straighten up. - Also reports generalized muscle pain consistent with a history of fibromyalgia. Const All systems reviewed & are unremarkable except as noted in HPI and below Physical Exam Exam Exam: General: Appears afebrile. Alert and oriented. Mood and affect appropriate. Follows and participates in conversation appropriately. Respiratory effort is unlabored. No cough. Able to transition from sit to stand unassisted. Ambulates with bilaterally normal heel strike and toe off. General: Yes no CVA tenderness Back/Spine/Pelvis Other: Normal gait, no limping. Lumbar flexion and bending reproduces mild to moderate pain, lumbar extension reproduces moderate pain. Demonstrates 5/5 strength of quadriceps bilaterally as well as flexion/dorsiflexion of bilateral feet against resistance. 2+ pedal pulses bilaterally. Straight leg rise with dorsiflexion negative bilaterally. +2 patellar and +1 achilles reflexes bilaterally. Facet loading test positive bilaterally. Fazal sign, Duncan?s, Pelvic compression and Stinchfield tests are negative bilaterally. No groin pain with I/E hip rotations. Valsalva maneuver negative. Back: no CVA tenderness Cervical Spine: cervical ROM normal, cervical muscular tenderness and No Cervical spine tenderness Thoracic/Lumbar Spine: thoracic and lumbar spine normal to inspection, No Thoracic/lumbar spine scar(s), Lasegue's sign negative, straight leg raise negative bilaterally, pain with thoraco-lumbar ROM, paraspinal muscle tenderness on the right greater than left, thoraco-lumbar ROM limited, Thoracic/lumbar scoliosis, No thoracic spinal tenderness and No lumbar spinal tenderness Sacroiliac joints: bilaterally nontender Extrem General: Yes capillary refill normal, Yes no clubbing, cyanosis or edema and Yes no calf tenderness Results Reviewed Results Reviewed: XR lumbar spine 4V min 09/13/25 FINDINGS: There are 5 nonrib-bearing lumbar segments. There is 27 degrees dextroscoliosis. There is moderate rotational component. There is mild wedging of superior L1 and mild osteophyte at superior L2. T12-L1: There is moderate disc space narrowing and endplate sclerosis L1-L2: There is moderate disc space narrowing with endplate sclerosis and anterior osteophytes L2-L3: There is mild grade 1 retrolisthesis and moderate loss of disc height with minimal endplate osteophytes. L3-L4: There is mild disc space narrowing. L4-L5: Unremarkable L5-S1: Unremarkable IMPRESSION: Moderate dextroscoliosis. Moderate degenerative disc disease at T12-L1 and L1-2 and mild degenerative changes at L2-3 and L3-4. Mild loss of height at L1 and L2 is probably related to scoliosis and degenerative changes but mild age-indeterminate compression fractures are not ruled out. XR CERVICAL SPINE 09/13/25 FINDINGS: There is mild reversal of the normal cervical lordosis. No fractures are identified. Limbus vertebra is noted at anterior inferior C5 and C6. There is no prevertebral soft tissue swelling. C2-3: Unremarkable C3-4: There is mild disc space narrowing and endplate osteophytes C4-5: There is moderate disc space narrowing with large anterior osteophytes and sclerosis. There is mild bony narrowing of the bilateral neural foramen C5-6: There is mild disc space narrowing with anterior osteophytes and endplate sclerosis. Uncovertebral osteophytes mildly narrow the right neural foramen C6-7: There is mild to moderate disc space narrowing and endplate sclerosis. C7-T1: Unremarkable. IMPRESSION: There is mild reversal of cervical lordosis. This can be related to degenerative changes, positioning, muscle spasm, or posterior soft tissue injury. Degenerative changes are most advanced at C4-5 and C5-6. Assessment & Plan Assessment & Plan (1) Lumbar spondylosis: Code(s): M47.816 - Spondylosis without myelopathy or radiculopathy, lumbar region Category: Medical (2) Scoliosis of thoracolumbar spine: Code(s): M41.9 - Scoliosis, unspecified Category: Medical (3) Chronic pain: Code(s): G89.29 - Other chronic pain Category: Medical Qualifiers: Chronic pain type: other chronic pain Qualified Code(s): G89.29 - Other chronic pain (4) Fibromyalgia: Code(s): M79.7 - Fibromyalgia Category: Medical Plan The patient had a positive response to bilateral diagnostic L1-L2-L3 medial branch blocks with improved functioning, daily activities and teaching yoga. Two long-term treatment options were discussed: peripheral nerve stimulation (Sprint) and radiofrequency ablation (RFA). 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 We will proceed with bilateral L1-L2-L3 medial branch RFA with local and fluoroscopy. Expectations, risks and benefits were reviewed. Patient is aware she will be contacted to schedule this procedure. The patient has a pending MRI scheduled for November 26. The plan is to await the results of the MRI before scheduling the RFA procedure. She also has a Neurosurgical referral to discuss potential surgical correction of her scoliosis, which will be followed up after the MRI is completed. All questions and concerns have been answered and patient agreed with the treatment plan. Follow up after injections and sooner as needed. Patient was informed and verbally consented to the use of an ambient scribe for clinic note documentation during this visit. Coding Level of Care Code Est Pt Level 3 (56954) Add On Problem Visit Only Diagnoses Lumbar spondylosis M47.816 Scoliosis of thoracolumbar spine M41.9 Other chronic pain G89.29 Chronic pain type: other chronic pain Fibromyalgia M79.7
[2025-11-08 13:29] VITALS: BP 105/58; PULSE 77; RESP 16; O2SAT 98; BMI 17.8
--- OUTSIDE RECORDS SUMMARY | 2025-11-08 15:16 | XMS_ITS | Clinical Summary ---
Author Organization [facility] it Address [address] [place] [address] Care Team Providers Care Director Of Counseling Name Role Phone Lety Piña MD Primary Care Provider +1- [phone] Allergies No known active allergies Medications penicillin [...] COMMENT: age 8 OTHER SURGICAL HISTORY PROCEDURE: [place] TX MISSED FIRST TRIMESTER SURGICAL Medical History [...] Maintenance Results * HIV Screening (01/08/2008) Pathologist [facility] HIV Screening abstarcted [facility] Provider HEALTH MAINTENANCE Final Result * Hepatitis C Screening (01/08/2008) Pathologist [facility] Hepatitis C Screening abstarcted [facility] Provider HEALTH MAINTENANCE Final Result * Pap Smear (01/08/2008) Pap smear abstracted, no interpretation [facility] Provider HEALTH MAINTENANCE Final Result from Last 3 Months or Most Recently Relevant to Health Maintenance Care Teams Director Of Counseling Relationship Specialty Start Date End Date Lety Piña MD [address] [place] [address] PCP - General Internal Medicine 12/25/18
== END 2025-11-08 14:03 | disposition home or self-care (01) ==
LOC: HO.PMC 13:17
PROVIDERS: Visit Provider Nurse Practitioner Family
DX: M47.816 Spondylosis without myelopathy or radiculopathy, lumbar region (principal); M41.9 Scoliosis, unspecified; G89.29 Other chronic pain; M79.7 Fibromyalgia
CPT/HCPCS: 99213; G2211

== ENCOUNTER → 2025-11-08 13:16 | Outpatient (BNVA) | payer MEDICARE, MEDICAID, SELFPAY | PROVIDERS: Visit Provider Nurse Practitioner Family | DX: M47.816 Spondylosis without myelopathy or radiculopathy, lumbar region (principal); M41.85 Other forms of scoliosis, thoracolumbar region; G89.29 Other chronic pain; M79.7 Fibromyalgia | CPT/HCPCS: 99212 ==